=== PATIENT | male | born 1975 | race Caucasian/White ===

== ENCOUNTER 2025-03-29 15:16 | Emergency (ER) | payer MEDICAID ==
[~2025-03-29] VITALS: Ht 172.7 cm; Wt 130.0 kg
[2025-03-29] MEDS: PREDNISONE 20MG TABLET PO ONE (16:09)
[2025-03-29] MEDS: IPRATROPIUM BROMIDE (0.02%) 0.5MG/2.5ML NEB HHN ONE (16:34)
[2025-03-29] MEDS: ALBUTEROL (0.083%) 2.5MG/3ML NEB HHN ONE (16:34)
[2025-03-29 16:38] VITALS: PULSE 82; RESP 18; O2SAT 100
[2025-03-29] MEDS ORDERED: P50 MT (17:20)
[2025-03-29] MEDS ORDERED: ALBU18HF2 IH (17:21)
[2025-03-29] MEDS ORDERED: INHA1EAC51 MC (17:23)
[2025-03-29 17:53] VITALS: BP 154/90; PULSE 88; RESP 18; TEMP 36.9; O2SAT 94
== END 2025-03-29 18:49 | disposition home or self-care (01) ==
LOC: ER 15:16
DX: J45.902 Unspecified asthma with status asthmaticus (principal); F31.9 Bipolar disorder, unspecified; F20.9 Schizophrenia, unspecified; F17.210 Nicotine dependence, cigarettes, uncomplicated
CPT/HCPCS: 94640; 99291; J7512; Z7610 ×3; 94664